=== PATIENT | male | born 1935 | race Caucasian/White ===

== ENCOUNTER 2023-10-05 15:38 | Inpatient (IN) ==
[2023-10-05] MEDS: ACETAMINOPHEN 1,000 MG/100 ML BAG IV ONE (15:57)
[2023-10-05] MEDS: LACTATED RINGERS 1,000 ML IV ONE (16:00)
[2023-10-05 16:09] LABS: Basophils # (Auto) 0.05 K/mcL (0.00-0.30); Basophils % (Auto) 0.4 % (0.0-2.0); Eosinophils # (Auto) 0.01 K/mcL (0.00-0.70); Eosinophils % (Auto) 0.1 % (0.0-7.0); Hemoglobin 12.6 g/dL (13.7-17.5); Lymphocytes # (Auto) 0.93 K/mcL (1.50-4.80); Lymphocytes % (Auto) 7.7 % (15.5-49.0); Mean Cell Volume 98.4 fL (80.0-100.0); Mean Corpuscular HGB Conc 33.2 g/dL (31.0-36.0); Mean Platelet Volume 9.2 fL (8.8-12.5); Monocytes # (Auto) 1.04 K/mcL (0.10-0.90); Monocytes % (Auto) 8.6 % (1.0-12.0); Platelet Count 275 K/mcL (140-440); RBC 3.86 M/mcL (4.63-6.08); Red Cell Distribution Width 12.7 % (11.5-14.5); WBC 12.1 K/mcL (4.5-11.0)
[2023-10-05] MEDS ORDERED: POTASSIUM CHLORIDE 40 MEQ in DEXTROSE 5% IN WATER 500 ML IV PRN (17:45)
[2023-10-05] MEDS ORDERED: SENNOSIDES 1 TABLET PO PRN (17:45)
[2023-10-05] MEDS ORDERED: POLYETHYLENE GLYCOL 3350 17 GM PACKET PO PRN (17:45)
[2023-10-05] MEDS ORDERED: IPRATROPIUM/ALBUTEROL 3 ML AMPUL.NEB NEB PRN (17:45)
[2023-10-05] MEDS ORDERED: MAGNESIUM SULFATE 2 GM/50 ML BAG IV PRN (17:45)
[2023-10-05] MEDS ORDERED: POTASSIUM CHLORIDE 20 MEQ TABLET PO PRN ×2 (17:45)
[2023-10-05] MEDS ORDERED: ONDANSETRON 4 MG/2 ML VIAL IV PRN (17:45)
[2023-10-05] MEDS: 0.9 % SODIUM CHLORIDE 1,000 ML IV SCH (19:10)
[2023-10-05] MEDS: AMPICILLIN SODIUM/SULBACTAM NA 3 GM in 0.9 % SODIUM CHLORIDE 100 ML IV SCH (20:15)
[2023-10-05] MEDS: 0.9 % SODIUM CHLORIDE 10 ML SYRINGE IV SCH (20:16)
[2023-10-05] MEDS: DOCUSATE SODIUM 100 MG CAPSULE PO SCH (20:16)
[2023-10-05] MEDS: ACETAMINOPHEN 325 MG TABLET PO PRN (22:59)
[2023-10-06 06:19] LABS: Basophils # (Auto) 0.04 K/mcL (0.00-0.30); Basophils % (Auto) 0.5 % (0.0-2.0); Eosinophils # (Auto) 0.08 K/mcL (0.00-0.70); Hematocrit 35.6 % (40.1-51.0); Hemoglobin 11.6 g/dL (13.7-17.5); Lymphocytes # (Auto) 1.11 K/mcL (1.50-4.80); Lymphocytes % (Auto) 14.1 % (15.5-49.0); Mean Cell Volume 99.4 fL (80.0-100.0); Mean Corpuscular HGB Conc 32.6 g/dL (31.0-36.0); Monocytes # (Auto) 0.77 K/mcL (0.10-0.90); Monocytes % (Auto) 9.8 % (1.0-12.0); Neutrophils % (Auto) 74.2 % (38.0-78.0); Platelet Count 245 K/mcL (140-440); RBC 3.58 M/mcL (4.63-6.08); WBC 7.9 K/mcL (4.5-11.0)
[2023-10-06 06:34] LABS: ALT/SGPT 10 U/L (<40); AST/SGOT 13 U/L (<40); Albumin 3.6 gm/dL (3.2-5.2); Albumin/Globulin Ratio 1.4 (1.0-2.3); Alkaline Phosphatase 55 U/L (39-117); Bilirubin,Direct 0.2 mg/dL (<0.3); Bilirubin,Total 0.7 mg/dL (0.1-1.0); Blood Urea Nitrogen 15 mg/dL (8-23); Calcium 9.4 mg/dL (8.6-10.4); Carbon Dioxide 20 mmol/L (22-30); Chloride 106 mmol/L (96-108); Globulin 2.5 gm/dL (2.2-3.7); Glomerular Filtration Rate 85; Glucose 115 mg/dL (70-105); Lactate Dehydrogenase 116 U/L (135-225); Phosphorous 2.3 mg/dL (2.5-4.5); Triglycerides 88 mg/dL (<150); Uric Acid 3.8 mg/dL (2.5-8.0)
[2023-10-06] MEDS ORDERED: hydrALAZINE 20 MG/ML VIAL IV PRN (07:49)
[2023-10-06] MEDS: MEMANTINE 10 MG TABLET PO SCH (08:10)
[2023-10-06] MEDS: ENOXAPARIN 40 MG/0.4 ML SYRINGE SQ SCH (08:11)
[2023-10-06] MEDS: ALLOPURINOL 100 MG TABLET PO SCH (08:11)
[2023-10-06] MEDS ORDERED: MAGNESIUM SULFATE 2 GM/50 ML BAG IV ONE (16:13)
[2023-10-06] MEDS ORDERED: DEXAMETHASONE 10 MG/ML VIAL ONE (16:34)
[2023-10-06] MEDS ORDERED: PROPOFOL 200 MG/20 ML VIAL IV ONE (16:34)
[2023-10-06] MEDS ORDERED: KETAMINE 50 MG/ML Syringe IV ONE (16:34)
[2023-10-06] MEDS ORDERED: LIDOCAINE 2% PF 5 ML VIAL ONE (16:34)
[2023-10-06] MEDS ORDERED: ONDANSETRON 4 MG/2 ML VIAL ONE (16:34)
[2023-10-06] MEDS ORDERED: IPRATROPIUM/ALBUTEROL 3 ML AMPUL.NEB NEB PRN (17:47)
[2023-10-06] MEDS ORDERED: BENZOCAINE/MENTHOL 1 LOZENGE PO PRN (17:47)
[2023-10-06] MEDS ORDERED: MEPERIDINE 25 MG/ML VIAL IV PRN (17:47)
[2023-10-06] MEDS ORDERED: PHENYLephrine 1 MG/10 ML SYRINGE (ANEST) ONE (17:55)
[2023-10-06] MEDS ORDERED: fentaNYL 100 MCG/2 ML VIAL IV PRN ×2 (18:19→18:35)
[2023-10-06] MEDS: fentaNYL 100 MCG/2 ML VIAL IV PRN (18:40)
[2023-10-06] MEDS: HYDROmorphone 0.5 MG/0.5 ML SYRINGE IV ONE (19:03)
[2023-10-06] MEDS: HYDROcodone/APAP 5/325MG TABLET PO PRN (19:36)
[2023-10-06] MEDS: fentaNYL 100 MCG/2 ML VIAL ONE ×2 (19:44)
[2023-10-06] MEDS: HYDROmorphone 0.5 MG/0.5 ML SYRINGE ONE (19:57)
[2023-10-06] MEDS: SIMVASTATIN 10 MG TABLET PO SCH (21:12)
[2023-10-07] MEDS: amLODIPine 5 MG TABLET PO SCH (08:20)
[2023-10-08] MEDS ORDERED: AMOXICILLIN/POTASSIUM CLAV 875 MG TABLET PO SCH (17:30)
== END 2023-10-08 14:00 | disposition home or self-care (01) | DRG 853 ==
LOC: ED 15:38 → MEDSUROUT 17:30 → MEDSUR 17:31
PROVIDERS: ADMIT Internal Medicine; ATTEND Internal Medicine